=== PATIENT | female | born 1950 ===

== ENCOUNTER 2022-02-04 09:20 | Outpatient (CLI) | payer OTHER | END 2022-02-04 09:24 | disposition home or self-care (01) | LOC: RX STUDY 09:20 | PROVIDERS: ATTEND Internal Medicine Gastroenterology | DX: K44.9 Diaphragmatic hernia without obstruction or gangrene (principal); K29.60 Other gastritis without bleeding ==

== ENCOUNTER 2022-12-24 07:41 | Outpatient (CLI) | payer OTHER | END 2022-12-24 07:45 | disposition home or self-care (01) | LOC: RX STUDY 07:41 | PROVIDERS: ATTEND Internal Medicine Gastroenterology | DX: K56.600 Partial intestinal obstruction, unspecified as to cause (principal); K59.00 Constipation, unspecified; C18.9 Malignant neoplasm of colon, unspecified ==

== ENCOUNTER 2024-08-04 10:00 | Outpatient (CLI) | payer OTHER | END 2024-08-04 10:04 | disposition home or self-care (01) | LOC: SONOGRAMA 10:00 | PROVIDERS: ATTEND Pathology Anatomic Pathology & Clinical Pathology | DX: D34 Benign neoplasm of thyroid gland (principal); E07.89 Other specified disorders of thyroid; E04.1 Nontoxic single thyroid nodule ==